=== PATIENT | female | born 1980 | race African-American/Black ===

== ENCOUNTER 2023-08-30 14:23 | Emergency (ER) | payer MEDICAID, OTHER ==
[~2023-08-30] VITALS: Ht 180.3 cm; Wt 104.0 kg
[~2023-08-30 14:23] MED LIST: AMOX-424 MT; BENZ1LOZ73 MT; CYCL10TA21 MT; IBUP-2029 MT; NAPR-1176 MT
[2023-08-30 14:27] VITALS: O2SAT 100
[2023-08-30] MEDS ORDERED: LIDO700A15 TP (15:31)
[2023-08-30] MEDS ORDERED: METH-653 MT (15:31)
[2023-08-30 15:49] VITALS: TEMP 98.7
[2023-08-30 15:51] VITALS: BP 138/84; PULSE 89; RESP 16
[2023-08-30] MEDS: KETOROLAC 15MG/ML VIAL IM ONE (15:51)
== END 2023-08-30 15:56 | disposition home or self-care (01) ==
LOC: ER 14:23
DX: S90.31XA Contusion of right foot, initial encounter (principal); Z98.890 Other specified postprocedural states; X58.XXXA Exposure to other specified factors, initial encounter; Y93.89 Activity, other specified; Y92.89 Other specified places as the place of occurrence of the external cause; Y99.8 Other external cause status
CPT/HCPCS: 99284; 81025; 73630; 96372; 73660; J1885

== ENCOUNTER 2023-09-25 16:39 | Emergency (ER) | payer MEDICAID ==
[~2023-09-25] VITALS: Ht 177.8 cm; Wt 118.0 kg
[~2023-09-25 16:39] MED LIST changes: +LIDO700A15 TP; +METH-653 MT
[2023-09-25 17:05] VITALS: TEMP 98.2; O2SAT 99
[2023-09-25 18:00] VITALS: BP 164/71; PULSE 82; RESP 18
[2023-09-25] MEDS: IBUPROFEN 400MG TABLET PO ONE (18:00)
[2023-09-25] MEDS ORDERED: IBUP-2028 MT (18:02)
== END 2023-09-25 19:40 | disposition home or self-care (01) ==
LOC: ER 16:39
DX: S93.402A Sprain of unspecified ligament of left ankle, initial encounter (principal); M25.572 Pain in left ankle and joints of left foot; W18.39XA Other fall on same level, initial encounter; Y93.89 Activity, other specified; Y92.89 Other specified places as the place of occurrence of the external cause; Y99.8 Other external cause status
CPT/HCPCS: 73610; 99283